=== PATIENT | male | born 2000 | race Caucasian/White ===

== ENCOUNTER 2021-06-08 20:51 | Emergency (ER) | payer OTHER ==
[2021-06-08] MEDS ORDERED: cefTRIAXone\\ROCEPHIN 500 MG VIAL ONE (21:46)
[2021-06-08] MEDS ORDERED: Sterile Water 10 ML ONE (21:47)
[2021-06-08] MEDS ORDERED: Ibuprofen 200 MG TAB ONE (21:47)
[2021-06-08] MEDS ORDERED: Acetaminophen 500 MG TAB ONE (21:47)
[2021-06-08 21:48] LABS: Bilirubin Neg (Negative); Blood, Urine Negative (Negative); Clarity Clear (Clear); Glucose, Urine (Dipstick) Normal (Negative); Ketone, Urine Negative (Negative); Leukocyte Negative (Negative); Nitrite Negative (Negative); Protein, Urine (Dipstick) Negative (Neg-Trace); Specific Gravity, Urine 1.015 (1.002-1.036); Urobilinogen Normal mg/dL (Less than 2)
== END 2021-06-08 23:16 | disposition home or self-care (01) ==
LOC: CSHERS 20:51
DX: N50.812 Left testicular pain (principal); R03.0 Elevated blood-pressure reading, without diagnosis of hypertension; F17.290 Nicotine dependence, other tobacco product, uncomplicated
CPT/HCPCS: 76870; 81003; 87086; 87491; 87591; 93976; 96372; J0696